=== PATIENT | female | born 1985 | race Two or more races ===

== ENCOUNTER 2025-02-06 03:36 | Inpatient (IN) | payer MEDICAID ==
[2025-02-06] VITALS (18 sets, daily range): BP systolic 104–128; BP diastolic 60–85; PULSE 78–111; RESP 15–18; TEMP 98–98.8; O2SAT 94–98
[~2025-02-06] VITALS: Ht 162.6 cm; Wt 90.7 kg
[2025-02-06] MEDS ORDERED: ONDANSETRON HCL 4 MG/2 ML VIAL ONE (04:21)
[2025-02-06] MEDS ORDERED: KETOROLAC TROMETH 30 MG/ML 1ML VIAL ONE (04:21)
[2025-02-06] MEDS ORDERED: MORPHINE SULF PF 5 MG/10 ML VIAL ONE (04:21)
[2025-02-06] MEDS ORDERED: fentaNYL CITRATE 100 MCG/2 ML VL ONE (04:21)
--- NOTE | 2025-02-06 04:23 | DVHHP2 ---
OB CC & HPI Date Date of Admission: Feb 06, 2025 Patient Identification: : 6 Para: 3 EDC: Feb 19, 2025 Chief Complaints: Reason for admission: active labor, section Indication for : desires repeat Admission Nurse Assessment Rev: Yes Past Medical History Cardiac: No pertinent Hx Pulmonary: No pertinent Hx Central Nervous System: No pertinent Hx GI: No pertinent Hx Hemotology/Oncology: No pertinent Hx Hepatobiliary: No pertinent Hx Psychiatric: No pertinent Hx Musculoskeletal: No pertinent Hx Rheumotologic: No pertinent Hx Infectious Disease: No peritnent Hx ENT: No pertinent Hx Renal/: No pertinent Hx Endocrine: No pertinent Hx Dermatology: No pertinent Hx OB History OB History Care: Good Care Ultrasounds: Normal mid trimester US Obstetrical Complications: None Medical Complications: None Allergies: Coded Allergies: NO KNOWN ALLERGIES (Unverified , 02/06/25) Home Meds No Active Prescriptions or Reported Meds Current Medications Current Medications Medications (Trade) Dose Ordered Sig/Imelda Route PRN Reason Start Time Stop Time Status Last Admin Lactated Ringer's 1,000 ml @ 125 mls/hr Q8H IV 02/06/25 04:15 Family & Social History Family/Social History Blood Type: Unknown Rubella: unknown RPR/VDRL: Unknown GBS Status: Unknown HBsAG: Unknown Review of Systems Constitutional: No symptom reported Ears, Nose, & Throat: No symptom reported Eyes: No symptom reported Pulmonary/Respiratory: No symptom reported Cardiovascular: No symptom reported Gastrointestinal: No symptom reported Genitourinary: No symptom reported Musculoskeletal: No symptom reported Skin: No symptom reported Psychiatric: No symptom reported Endocrine: No symptom reported Hemotologic/Lymphatic: No symptom reported OB Admission Exam Physical Exam HEENT: TMs Normal, Fontanelles Normal, Nasal Mucosa Normal, Eyes non-injected, Oropharynx Normal, PERRLA, Moist Membranes, EOMI Heart: Rhythm Normal Lungs: Clear Abdomen: Non tender Extremities: Normal Reflexes: Normal Cervical Dilatation: 5cm Effacement: 75% Station: -2 Membranes: Intact Heart Rate: 130's Accelerations: Accelerations Present Decelerations: No Decelerations Pleat Taper Variability: Average (6-25) Contractions on Admission: None Intensity: Moderate OB Plan Plan Admitting Diagnosis: Repeat Section Plan: Section Other Plan: Its complications alternatives discussed with the patient not limited to . She understands the risks infection bleeding anesthesia acute current pain damage to adjacent organs transfusion hep B HIV transfusion reaction my stroke . Injury specifically discussed given her previous cesareans potential damage to ureters bladder nerves muscles bowel acute chronic pain all questions answered patient had only wants to proceed. CECELIA CAMACHO DO Feb 06, 2025 04:23
[2025-02-06] MEDS ORDERED: BUPIVACAINE/DEXTROSE MPF 0.75% 2 ML AMP IT ONE (04:24)
--- NOTE | 2025-02-06 04:29 | DVHOP2 ---
Operative Report - 2 Report Details Date: 02/06/25 Preop Diagnosis: 38+ weeks active labor previous Postop Diagnosis: Same Surgeon: Fatemeh Camacho Non Emergency Services Ambulance Driver: VAHID surgical nurse Anesthesiologist: ELIO Anesthesia: Regional Drains: We can Implant: None Consent: The patient was informed of the risks and benefits of the procedure. These include but are not limited to complications of anesthesia, postoperative infection, incomplete relief of symptoms, recurrence of symptoms, damage to blood vessels, nerves and tendons, deep venous thrombosis, pulmonary embolism and possible need for repeat surgery in the future. Complications: None Estimated Blood Loss: 650 cc Fluids: See anesthesia logs Findings: vigorous cry and tone Indications for Surgery: Active labor previous desires elective repeat Name of Procedure Performed Repeat low transverse Procedure Details Procedure Details: Operating room placed in sitting position spinal anesthesia performed without di fficulty she was then prepped draped sterile fashion placed in left lateral tilt. Low Pfannenstiel incision made through old scar down to the rectus fascia nicked in midline carried laterally rectus muscle muscle in midline peritoneum identified entered with sharp dissection peritoneal incision was dissected laterally towards the rectus fascia with care to avoid bowel and/or bladder damage. Vesicouterine peritoneum was taken off lower uterine segment low-transverse incision made with a scalpel to the current membranes the hourglassing and ruptured with hemostat 1 hand placed lower uterine segment infant MOHAN position general pressure of the fundus was applied and the head delivered essentially spontaneously nose and mouth bulb suctioned shoulders and torso delivered without difficulty again motion mouth bulb suctioned 60 seconds cord delay was performed and cord was cut and handed off to awaiting respiratory nurses. This point placenta removed after obtaining an umbilical blood sample uterus exposed and cleared of all clots and debris and the hysterotomy incision was closed with a double layer 2-0 Vicryl vesicouterine peritoneum was incorporated in the 2nd layer. We had complete hemostasis at this 0.650 EBL for uterine tone. Gutters were cleared as well as cul-de-sac smell clots and debris uterus replaced in the low uterine hysterotomy incision was reinspected with good hemostasis. We copiously irrigated and then closed deep peritoneum with running continuous 2-[address] 1. Prior to closure the peritoneum the instrument lap sponge count correct x1. Rectus fascia then closed with running continuous of 0 PDS Camper's Neo's fascia undermined and approximated with 2-0 chromic a if 3-0 Prolene was then used to close the skin with running continuous benzoin Steri-Strips placed ABD pad and a pressure dressing patient was then frog-leg then the uterus vagina was cleared of all clots and debris. Patient taken to PACU taken to the nursery. Specimen: Placenta, blood gas, umbilical blood sample Condition Good Disposition Home Visit Coding OBGYN Date of Service: Feb 06, 2025 Billing Provider: CECELIA CAMACHO DO SPOTLIGHT OPERATOR Common Visit Codes: [id number] INP/OBS CARE(HIGH), 29505-XVE/OBS SAME DATE (LOW), 73128-NPR/OBS SAME DATE (MOD) SPOTLIGHT OPERATOR Procedure Codes: 88582-KTBRX OB CARE, DEL CECELIA CAMACHO DO Feb 06, 2025 04:29
[2025-02-06] MEDS ORDERED: HYDROmorphone HCL 2 MG/ML VL/or syr IV PRN ×3 (04:30→08:45)
[2025-02-06] MEDS ORDERED: ONDANSETRON HCL 4 MG/2 ML VIAL IV PRN ×3 (04:30→08:45)
[2025-02-06] MEDS ORDERED: ceFAZolin 1GM/50ML 50 ML IV SCH (04:30)
[2025-02-06] MEDS: LACTATED RINGER'S 1,000 ML IV SCH ×2 (04:30→05:01)
[2025-02-06] MEDS: LACT. RINGERS/OXYTOCIN 20UNITS 1,000 ML IV SCH (04:30)
[2025-02-06 04:51] LABS: Hematocrit 33.5 % (36.0-46.0); Hemoglobin 11.5 g/dL (12.2-16.2); Mean Corpuscular Hemoglobin 33.6 pg (28.0-32.0); Mean Corpuscular Volume 97.6 fL (80.0-100.0); Nucleated Red Blood Cells % 0.1 %
[2025-02-06] MEDS: LACTATED RINGER'S 1,000 ML IV ONE (05:00)
[2025-02-06] MEDS: ceFAZolin 2 GM/D5W50ml 50 ML IV ONE (05:01)
[2025-02-06 05:07] LABS: Alanine Aminotransferase 35 U/L (7-40); Albumin 3.9 g/dL (3.2-4.8); Anion Gap 10 (5-15); BUN/Creatinine Ratio 16.7 (10.0-20.0); Calcium 8.9 mg/dL (8.7-10.4); Carbon Dioxide 21 mmol/L (20-31); Chloride 105 mmol/L (98-107); Glucose 82 mg/dL (74-106); Potassium 3.8 mmol/L (3.5-5.1); Sodium 136 mmol/L (136-145); Total Protein 6.6 g/dL (5.7-8.2)
[2025-02-06 05:08] LABS: Bilirubin, Total 0.7 mg/dL (0.2-1.0)
[2025-02-06 05:11] LABS: Alkaline Phosphatase 136 U/L (46-116); Blood Urea Nitrogen 7 mg/dL (9-23)
[2025-02-06 05:16] LABS: INR 0.9 (0.9-1.15); Partial Thromboplastin Time 27.1 SEC (24.5-34.5); Prothrombin Time 9.6 sec (9.3-11.8)
[2025-02-06] MEDS ORDERED: PHENYLEPHRINE HCL 10 MG/ML VL ONE (05:42)
[2025-02-06] MEDS ORDERED: SODIUM CHLORIDE LOCK 10 ML ONE (05:42)
[2025-02-06] MEDS ORDERED: diphenhydrAMINE HCL 50 MG/1 ML VL IV PRN (06:45)
[2025-02-06] MEDS: NALBUPHINE HCL 10 MG/1ml INJECTION IV ONE (06:45)
[2025-02-06] MEDS ORDERED: NALOXONE HCL 0.4 MG/ML VIAL IV PRN (06:45)
[2025-02-06 12:37] LABS: Amphetamine Screen, Urine Neg (NEGATIVE); Barbiturate Scree,Urine Neg (NEGATIVE); Benzodiazephine Screen, Urine Neg (NEGATIVE); Cannabinoid Screen, Urine Neg (NEGATIVE); Cocaine Screen, Urine Neg (NEGATIVE); Opiate Scree,Urine Neg (NEGATIVE); Phencyclidine Screen, Urine Neg (NEGATIVE)
[2025-02-06 12:42] LABS: Urine Budding Yeast OCCASIONAL /hpf (None Seen); Urine Protein, UAD Negative (Negative)
[2025-02-06] MEDS: ceFAZolin 1GM/50ML 50 ML IV SCH (13:30)
[2025-02-06] MEDS: ACETAMINOPHEN IV 1000 MG/100ML (10MG/ML) IV PRN (18:47)
[2025-02-07] VITALS (14 sets, daily range): BP systolic 105–131; BP diastolic 62–82; PULSE 84–97; RESP 16–18; TEMP 97.9–98.8; O2SAT 92–98
[2025-02-07] MEDS: IBUPROFEN 800 MG TAB PO PRN (04:51)
[2025-02-07] MEDS: SIMETHICONE 80 MG CHEWABLE TABLET PO SCH (06:00)
--- NOTE | 2025-02-07 06:10 | DVHPN2 ---
Chief Complaints Patient reports: No new complaints, Feels better (The LAD colored pain well controlled minimal lochia.) Nursing reports: No new complaints, No abdominal pain, No chest pain, No dizziness, No cough Objective Vitals Vital Signs Date Time Temp Pulse Resp B/P (MAP) Pulse Ox O2 Delivery O2 Flow Rate FiO2 02/07/25 05:43 87 18 98 02/07/25 03:30 98.8 105/82 (90) 98.8 02/06/25 19:30 Room Air Medications Current Medications Medications (Trade) Dose Ordered Sig/Imelda Route PRN Reason Start Time Stop Time Status Last Admin Acetaminophen/ Hydrocodone Bitart ([place] 5/325MG Tab) 1 tab Q4HPRN PRN PO FOR PAIN 1-6 02/07/25 04:45 Acetaminophen/ Hydrocodone Bitart ([place] 5/325MG Tab) 2 tab Q4HPRN PRN PO FOR PAIN 7-10 02/07/25 04:45 Dimethicone (Mylicon Tab) 80 mg QID PO 02/07/25 06:00 Diphenhydramine HCl (Benadryl Injection) 25 mg Q4HP PRN IV FOR ITCHING 02/06/25 06:45 Ibuprofen (Motrin Tablet) 800 mg Q8HP PRN PO BREAKTHROUGH PAIN 02/07/25 04:45 02/07/25 04:51 General: Normal Head/Eyes: Normal Neck: Normal Lungs: Normal Cardiovascular: Normal Abdominal: Normal (Clean dry and intact) Musculoskeletal: Normal Extremities: Normal Neurological: Normal Studies Laboratory Tests 02/06/25 04:31 Test 02/06/25 04:31 Range/Units Serum Glucose 82 74-106 mg/dL Ass/Plan Assessment Postop day 1 stable improved advanced care Plan See orders advanced care. CECELIA CAMACHO DO Feb 07, 2025 06:10
[2025-02-07] MEDS: HYDROcodone-ACET 5/325MG TAB PO PRN ×2 (07:51→13:57)
[2025-02-07] MEDS: ACETAMINOPHEN 325 MG TAB PO PRN (08:03)
[2025-02-07 09:05] LABS: Hematocrit 28.0 % (36.0-46.0); Hemoglobin 9.3 g/dL (12.2-16.2); Mean Corpuscular Hemoglobin 32.8 pg (28.0-32.0); Mean Corpuscular Volume 99.1 fL (80.0-100.0); Nucleated Red Blood Cells % 0.0 %
[2025-02-07] MEDS ORDERED: FERR30CA PO (10:10)
[2025-02-07] MEDS ORDERED: PREN-96 PO (10:10)
[2025-02-07] MEDS ORDERED: IBUP-1455 PO (10:10)
[2025-02-07] MEDS ORDERED: DOCU-94 PO (10:10)
[2025-02-07] MEDS ORDERED: HYDR-4902 PO (10:10)
[2025-02-07] MEDS: DOCUSATE SOD 100 MG CAP PO SCH (10:30)
[2025-02-07] MEDS: DOCUSATE SOD 100 MG CAP PO ONE (17:49)
[2025-02-08 03:00] VITALS: BP 124/77; PULSE 96; TEMP 98.6; O2SAT 96
--- NOTE | 2025-02-08 06:27 | DVHPN2 ---
Progress Note Date Seen: Feb 08, 2025 Subjective S: Pt tolerating regular diet. Was unable to pass gas before midnight, but has now been able to pass gas. No BM yet. She was able to get up to ambulate at 0400, voiding well. Exclusively , states baby is latching. States that she would like to go home [facility]. Bleeding is less, denies lightheaded/dizziness, pain well controlled with oral medications. vital signs VSS see cpn Vital Sign Date Time Temp Pulse Resp B/P (MAP) Pulse Ox O2 Delivery O2 Flow Rate FiO2 02/08/25 03:00 98.6 96 124/77 (93) 96 98.6 02/07/25 23:00 16 02/07/25 19:00 Room Air Total Intake and Output 02/07/25 02/07/25 02/08/25 15:00 23:00 07:00 Output Total 1100 ml Balance -1100 ml medications Current Medications Medications Dose Ordered Sig/Imelda Route Start Time Stop Time Status Last Admin Dose Admin Ondansetron HCl 4 mg Q4HP PRN IV 02/06/25 04:30 Diphenhydramine HCl 25 mg Q4HP PRN IV 02/06/25 06:45 Dimethicone 80 mg QID PO 02/07/25 06:00 02/07/25 17:49 80 MG Ibuprofen 800 mg Q8HP PRN PO 02/07/25 04:45 02/07/25 23:19 800 MG Acetaminophen/ Hydrocodone Bitart 1 tab Q4HPRN PRN PO 02/07/25 04:45 02/07/25 21:53 1 TAB Acetaminophen/ Hydrocodone Bitart 2 tab Q4HPRN PRN PO 02/07/25 04:45 Acetaminophen 650 mg Q6HP PRN PO 02/07/25 08:00 02/08/25 02:17 650 MG laboratory and microbiology Laboratory Tests 02/07/25 08:13 02/06/25 04:31 Test 02/06/25 04:31 Range/Units Serum Glucose 82 74-106 mg/dL Objective O: VSS Chest: heart and lung sounds normal Abd: soft, non-tender, fundus firm at U midline, active bowel sounds, no rebound or guarding Incision: sylke dressing C/D/I Ext: Non-tender, No edema Lochia: minimal See lab results Problems(with codes): (1) S/P repeat low transverse (2) Precipitous drop in hematocrit Assessment/Plan A: 39 yo now POD#2 s/p repeat C/S Rh status + Breast feeding P: D/C home today Rx sent to pharmacy precautions and preeclampsia warning signs reviewed F/U with [facility] office in 1 week Plan discussed with: Patient, Spouse Fluid Accumulation (N/A): N/A Reduced Risk Control Manager Strength (Non-Sev: N/A HEMA MOLINA STUDENTMDW Feb 08, 2025 06:27
--- NOTE | 2025-02-08 06:28 | DVHDS2 ---
Obstetrics Discharge Summary Obstetrics Discharge Summary Date of Admission: Feb 06, 2025 Date of Discharge: Feb 08, 2025 Reason For Admission: Section (Repeat) Procedures: None Intrapartum Procedures: (LTCS) Procedures: Antibiotics, Hct/date: (02/07/25), Hgb/date: (02/07/25) Operative Complicat: None Discharge Diagnosis: Term -Delivered Discharge Information: Activity (as tolerated, no heavy lifting and nothing in the vagina for 6 weeks), Diet (Routine), Medications (rx sent), Instructions (Routine), Discharge to (Home), Accompanied by (Spouse), Discarge date (02/08/2025) Visit Coding OBGYN Date of Service: Feb 08, 2025 Billing Provider: CRYSTAL VILLATORO CNM [employer] MACHINE OPERATOR Common Visit Codes: 37845-VLL/OBS DISCH DAY <30MIN HEMA MOLINA STUDENTMDW Feb 08, 2025 06:28
[2025-02-08 07:00] VITALS: BP 122/77; PULSE 83; RESP 15; TEMP 98.2; O2SAT 96
[2025-02-08] MEDS ORDERED: DOCUSATE SOD 100 MG CAP PO ONE (10:03)
[2025-02-08] MEDS: DOCUSATE SOD 100 MG CAP PO SCH (10:07)
[2025-02-08 11:00] VITALS: BP 122/80; PULSE 86; RESP 16; TEMP 98.1; O2SAT 96
== END 2025-02-08 13:25 | disposition home or self-care (01) | DRG 540 ==
LOC: LDRP 03:36 → OBSVTOIN 04:00 → LDRP 07:00
PROVIDERS: ADMIT Obstetrics & Gynecology; ATTEND Obstetrics & Gynecology
PROC: 10D00Z1 Extraction of Products of Conception, Low, Open Approach (ICD-10-PCS; principal; 2025-02-06 05:27)
DX: O34.211 Maternal care for low transverse scar from previous cesarean delivery (principal); R71.0 Precipitous drop in hematocrit; Z37.0 Single live birth; Z3A.38 38 weeks gestation of pregnancy
CPT/HCPCS: 36415; 59025; 80053; 80307; 81001; 85025; 85610; 85730; 86780; 86850; 86900; 86901; 94760; 94762; 96360; 96361; 96365; 96366; G0378; J0131; J1100; J1885; J2405; J2590